=== PATIENT | male | born 1945 | race Caucasian/White ===

== ENCOUNTER 2018-04-20 06:23 | Day surgery (SDC) | payer MEDICARE ==
[~2018-04-20 06:23] MED LIST: ALLOPURINOL300 MG PO; ASPIRIN81 MG PO; GLIPIZIDE10 M2 PO; LIPITOR10 M1 PO; LISINOPRIL10 MG PO; METFORMIN HCL500 M1 PO; METFORMIN850 MG PO; MULTI VIT PO; TAMSULOSIN HCL0.4 MG PO
[2018-04-20 08:47] VITALS: BP 112/63
== END 2018-04-20 08:54 | disposition home or self-care (01) ==
LOC: ENDO 06:23
PROVIDERS: ATTEND Surgery
PROC: 0DJD8ZZ Inspection of Lower Intestinal Tract, Via Natural or Artificial Opening Endoscopic (ICD-10-PCS; principal; 2018-04-20)
DX: K57.30 Diverticulosis of large intestine without perforation or abscess without bleeding (principal); R10.32 Left lower quadrant pain

== ENCOUNTER → 2018-05-04 | Outpatient (REF) | payer MEDICARE ==
[2018-05-04 12:04] VITALS: BP 145/66
== END | disposition home or self-care (01) ==
LOC: BADA 10:00 → FIORUCCI 11:34 → BADA 12:00
PROVIDERS: ATTEND Surgery
DX: Z09 Encounter for follow-up examination after completed treatment for conditions other than malignant neoplasm (principal); R10.32 Left lower quadrant pain